=== PATIENT | female | born 1990 | race Caucasian/White ===

== ENCOUNTER 2018-09-13 07:33 | Emergency (ER) | payer SELFPAY ==
[~2018-09-13] VITALS: Ht 162.6 cm; Wt 72.6 kg
--- NOTE | 2018-09-13 07:57 | PHYS DOC ---
Past Medical History Past Medical History: No Pertinent History Past Surgical History: No Surgical History Alcohol Use: None Drug Use: None Adult General Chief Complaint Chief Complaint: BACK PAIN - NO INJURY HPI HPI Patient is a 28 year old female presented to ER today for evaluation of right side flank pain that radiated to her back started last night. Patient denies any pelvic pain, no vaginal bleeding or discharge. Patient says she missed her period this month. Patient's last menstrual period was on August 01, 2018. She denies any fever, no urinary frequency or urgency. Patient denies any chest pain or trouble breathing. Patient had been twice. Review of Systems Review of Systems Constitutional: Denies fever or chills [] Eyes: Denies change in visual acuity, redness, or eye pain [] HENT: Denies nasal congestion or sore throat [] Respiratory: Denies cough or shortness of breath [] Cardiovascular: No additional information not addressed in HPI [] GI: Positive for right-sided abdominal pain : Denies dysuria or hematuria [] Musculoskeletal: Denies back pain or joint pain [] Integument: Denies rash or skin lesions [] Neurologic: Denies headache, focal weakness or sensory changes [] Endocrine: Denies polyuria or polydipsia [] All other systems were reviewed and found to be within normal limits, except as documented in this note. Current Medications Current Medications Current Medications Medications (Trade) Dose Ordered [facility] Start Time Stop Time Status Last Admin Dose Admin Acetaminophen (Tylenol) 1,000 mg 1X ONCE 09/13/18 09:15 09/13/18 09:16 DC 09/13/18 09:14 1,000 MG Insulin Human Regular (HumuLIN R VIAL) 10 unit 1X ONCE 09/13/18 08:30 09/13/18 08:31 Cancel Allergies Allergies Allergies Coded Allergies Type Severity Reaction Last Updated Verified No Known Drug Allergies 07/21/15 No Physical Exam Physical Exam Constitutional: Well developed, well nourished, no acute distress, non-toxic appearance. [] HENT: Normocephalic, atraumatic, bilateral external ears normal, oropharynx moist, no oral exudates, nose normal. [] Eyes: PERRLA, EOMI, conjunctiva normal, no discharge. [] Neck: Normal range of motion, no tenderness, supple, no stridor. [] Cardiovascular:Heart rate regular rhythm, no murmur [] Lungs & Thorax: Bilateral breath sounds clear to auscultation [] Abdomen: Bowel sounds normal, soft, no masses, no pulsatile masses. RIGHT SIDE FLANK TENDER TO PALPATION, RLQ, RUQ tender to palpation. Skin: Warm, dry, no erythema, no rash. [] Back: No tenderness, no CVA tenderness. [] Extremities: No tenderness, no cyanosis, no clubbing, ROM intact, no edema. [] Neurologic: Alert and oriented X 3, normal motor function, normal sensory function, no focal deficits noted. [] Psychologic: Affect normal, judgement normal, mood normal. [] Current Patient Data Vital Signs Vital Signs Date Time Temp Pulse Resp B/P (MAP) Pulse Ox O2 Delivery O2 Flow Rate FiO2 09/13/18 10:34 73 18 119/75 (90) 98 09/13/18 07:48 98.5 Room Air 98.5 Lab Values Laboratory Tests Test 09/13/18 07:43 09/13/18 08:00 09/13/18 08:55 POC Urine HCG, Qualitative Hcg positive (Negative) White Blood Count 10.0 x10^3/uL (4.0-11.0) Red Blood Count 4.39 x10^6/uL (3.50-5.40) Hemoglobin 12.6 g/dL (12.0-15.5) Hematocrit 36.2 % (36.0-47.0) Mean Corpuscular Volume 82 fL (79-100) Mean Corpuscular Hemoglobin 29 pg (25-35) Mean Corpuscular Hemoglobin Concent 35 g/dL (31-37) Red Cell Distribution Width 14.1 % (11.5-14.5) Platelet Count 384 x10^3/uL (140-400) Neutrophils (%) (Auto) 86 % (31-73) H Lymphocytes (%) (Auto) 8 % (24-48) L Monocytes (%) (Auto) 5 % (0-9) Eosinophils (%) (Auto) 0 % (0-3) Basophils (%) (Auto) 1 % (0-3) Neutrophils # (Auto) 8.6 x10^3uL (1.8-7.7) H Lymphocytes # (Auto) 0.8 x10^3/uL (1.0-4.8) L Monocytes # (Auto) 0.5 x10^3/uL (0.0-1.1) Eosinophils # (Auto) 0.0 x10^3/uL (0.0-0.7) Basophils # (Auto) 0.1 x10^3/uL (0.0-0.2) Segmented Neutrophils % 85 % (35-66) H Band Neutrophils % 5 % (0-9) Lymphocytes % 5 % (24-48) L Monocytes % 3 % (0-10) Eosinophils % 1 % (0-5) Basophils % 1 % (0-3) Platelet Estimate Adequate (ADEQUATE) Urine Collection Type Unknown Urine Color Yellow Urine Clarity Clear Urine pH 6.0 Urine Specific Manning 1.010 Urine Protein Negative mg/dL (NEG-TRACE) Urine Glucose (UA) Negative mg/dL (NEG) Urine Ketones (Stick) Negative mg/dL (NEG) Urine Blood Small (NEG) Urine Nitrite Negative (NEG) Urine Bilirubin Negative (NEG) Urine Urobilinogen Dipstick 0.2 mg/dL (0.2 mg/dL) Urine Leukocyte Esterase Moderate (NEG) Urine RBC 3-5 /HPF (0-2) Urine WBC 11-20 /HPF (0-4) Urine Squamous Epithelial Cells Mod /LPF Urine Bacteria Moderate /HPF (0-FEW) Urine Mucus Slight /LPF Sodium Level 140 mmol/L (136-145) Potassium Level 3.7 mmol/L (3.5-5.1) Chloride Level 102 mmol/L (98-107) Carbon Dioxide Level 25 mmol/L (21-32) Anion Gap 13 (6-14) Blood Urea Nitrogen 6 mg/dL (7-20) L Creatinine 0.8 mg/dL (0.6-1.0) Estimated GFR (Cockcroft-Gault) 86.0 BUN/Creatinine Ratio 8 (6-20) Glucose Level 95 mg/dL (70-99) Calcium Level 9.0 mg/dL (8.5-10.1) Total Bilirubin 0.8 mg/dL (0.2-1.0) Aspartate Amino Transferase (AST) 13 U/L (15-37) L Alanine Aminotransferase (ALT) 19 U/L (14-59) Alkaline Phosphatase 109 U/L (46-116) Total Protein 7.7 g/dL (6.4-8.2) Albumin 3.5 g/dL (3.4-5.0) Albumin/Globulin Ratio 0.8 (1.0-1.7) L Lipase 98 U/L (73-393) Maternal Serum HCG Beta Subunit 87472 mIU/mL (0-5) H Laboratory Tests 09/13/18 08:00 Laboratory Tests 09/13/18 08:00 EKG EKG [] Radiology/Procedures Radiology/Procedures [facility] [address] [place] [address] IMAGING REPORT Signed PATIENT: ALEKSANDR FELICIANO ACCOUNT: [id number] : 1990 LOCATION: ER AGE: 28 SEX: F EXAM STATUS: REG ER ORD. PHYSICIAN: CHETNA METCALF DO REASON: abdominal pain, pelvic pain, , LMP 08/01/18, HCG LEVEL [id number]. PROCEDURE: OB <14 WKS W/TV Examination: Obstetric ultrasound less than 14 weeks HISTORY: History of abdominal pain, pelvic pain, COMPARISON: 06/14/2016 FINDINGS: Single living intrauterine identified with heart rate of 121 bpm. Intrauterine gestational sac, yolk sac identified. LMP 08/01/2018. Clinical age 6 weeks and 1 day with estimated date of delivery 05/08/2019. Ultrasound age is 6 weeks and 1 day with estimated date of delivery by ultrasound 05/08/2019. The crown-rump length measures 0.46 cm corresponding to 6 weeks and 1 day. The uterus measures 9.6 x 6.8 x 8.0 cm. Right ovary measures 2.3 x 2.0 x 2.3 cm. The left ovary measures 3.2 x 1.9 x 2.7 cm. There is a 2.1 cm cystic echogenicity identified in the left ovary probably corpus luteal cyst. There is a 3.6 x 0.9 x 2.4 cm heterogeneous echogenicity identified in the subchorionic region likely subchorionic bleed. IMPRESSION: 1. Single living intrauterine with heart of 121 bpm. Gestational age of 6 weeks and 1 day. 2. 3.6 cm heterogeneous echogenicity identified in the subchorionic region likely subchorionic bleed. Close interval follow-up examination is recommended. 3. 2.1 cm left ovary corpus luteal cyst. Electronically signed by: Douglas Toure MD (09/13/2018 11:49 AM) [id number] [] Course & Med Decision Making Course & Med Decision Making Pertinent Labs and Imaging studies reviewed. (See chart for details) [] Dragon Disclaimer Dragon Disclaimer This electronic medical record was generated, in whole or in part, using a voice recognition dictation system. Departure Departure Impression: Primary Impression: Abdominal pain in Additional Impression: UTI (urinary tract infection) Disposition: 01 HOME, SELF-CARE Condition: STABLE Referrals: NO PCP (PCP) FOLLOW UP WITH [facility] NEXT WEEK FOR CARE. Patient Instructions: Abdominal Pain During , Urinary Tract Infection Scripts Cephalexin (CEPHALEXIN) 500 Mg Capsule 500 MG PO QID for 7 Days, #28 CAP Prov: CHETNA METCALF DO 09/13/18 Problem Qualifiers CHETNA METCALF DO Sep 13, 2018 07:56
[2018-09-13 08:12] LABS: BASO # 0.1 x10^3/uL (0.0-0.2); BASO % 1 % (0-3); BILIRUBIN,URINE NEGATIVE (NEG); CLARITY,URINE CLEAR; COLOR,URINE YELLOW; EOS % 0 % (0-3); HEMATOCRIT 36.2 % (36.0-47.0); HEMOGLOBIN 12.6 g/dL (12.0-15.5); LYMPH # 0.8 x10^3/uL (1.0-4.8); LYMPH % 8 % (24-48); MEAN CORPUSCULAR HEMOGLOBIN 29 pg (25-35); MEAN CORPUSCULAR HGB CONC 35 g/dL (31-37); MEAN CORPUSCULAR VOLUME 82 fL (79-100); MONO # 0.5 x10^3/uL (0.0-1.1); MONO % 5 % (0-9); NEUT # 8.6 x10^3uL (1.8-7.7); NEUT % 86 % (31-73); NITRITE,URINE NEGATIVE (NEG); PLATELET COUNT 384 x10^3/uL (140-400); PROTEIN,URINE NEGATIVE (NEG-TRACE); RED BLOOD COUNT 4.39 x10^6/uL (3.50-5.40); RED CELL DISTRIBUTION WIDTH 14.1 % (11.5-14.5); UROBILINOGEN,URINE 0.2 mg/dL (0.2 mg/dL)
[2018-09-13 08:30] LABS: BACTERIA,URINE MODERATE /HPF (0-FEW); SQUAMOUS EPITHELIAL CELL,UR MOD /LPF
[2018-09-13] MEDS ORDERED: INSULIN REGULAR 100 UNIT/ML 3ML VIAL. IV ONE (08:30)
[2018-09-13 08:32] LABS: CREATININE 0.8 mg/dL (0.6-1.0); POTASSIUM 3.7 mmol/L (3.5-5.1)
[2018-09-13 08:38] LABS: ALBUMIN 3.5 g/dL (3.4-5.0); ALBUMIN/GLOBULIN RATIO 0.8 (1.0-1.7); TOTAL BILIRUBIN 0.8 mg/dL (0.2-1.0); TOTAL PROTEIN 7.7 g/dL (6.4-8.2)
[2018-09-13] MEDS ORDERED: ACETAMINOPHEN 500 MG TABLET PO ONE (09:15)
[2018-09-13 09:28] LABS: % BANDS 5 % (0-9); % BASOS 1 % (0-3); % EOS 1 % (0-5); % LYMPHS 5 % (24-48); % MONOS 3 % (0-10); % SEGS 85 % (35-66); PLT ESTIMATE ADEQUATE (ADEQUATE)
[2018-09-13 10:34] VITALS: BP 119/75
--- NOTE | 2018-09-13 11:52 | RAD ---
Examination: Obstetric ultrasound less than 14 weeks HISTORY: History of abdominal pain, pelvic pain, COMPARISON: 06/14/2016 FINDINGS: Single living intrauterine identified with heart rate of 121 bpm. Intrauterine gestational sac, yolk sac identified. LMP 08/01/2018. Clinical age 6 weeks and 1 day with estimated date of delivery 05/08/2019. Ultrasound age is 6 weeks and 1 day with estimated date of delivery by ultrasound 05/08/2019. The crown-rump length measures 0.46 cm corresponding to 6 weeks and 1 day. The uterus measures 9.6 x 6.8 x 8.0 cm. Right ovary measures 2.3 x 2.0 x 2.3 cm. The left ovary measures 3.2 x 1.9 x 2.7 cm. There is a 2.1 cm cystic echogenicity identified in the left ovary probably corpus luteal cyst. There is a 3.6 x 0.9 x 2.4 cm heterogeneous echogenicity identified in the subchorionic region likely subchorionic bleed. IMPRESSION: 1. Single living intrauterine with heart of 121 bpm. Gestational age of 6 weeks and 1 day. 2. 3.6 cm heterogeneous echogenicity identified in the subchorionic region likely subchorionic bleed. Close interval follow-up examination is recommended. 3. 2.1 cm left ovary corpus luteal cyst. Electronically signed by: Douglas Toure MD (09/13/2018 11:49 AM) [id number]
[2018-09-13] MEDS ORDERED: CEPH500C PO (12:02)
== END 2018-09-13 12:37 | disposition home or self-care (01) ==
LOC: ER 07:33
DX: O23.41 Unspecified infection of urinary tract in pregnancy, first trimester (principal); R10.31 Right lower quadrant pain; R10.11 Right upper quadrant pain; Z3A.01 Less than 8 weeks gestation of pregnancy
CPT/HCPCS: 36415; 76801; 76817; 80053; 81001; 81025; 83690; 84702; 85007; 85025; 86900; 86901; 87086; 99285-25